=== PATIENT | female | born 1960 | race Caucasian/White ===

== ENCOUNTER 2017-06-01 09:30 | Emergency (ER) | payer BC ==
[~2017-06-01] VITALS: Ht 167.6 cm; Wt 72.6 kg
[~2017-06-01 09:30] MED LIST: LEVO150T PO; OXCA150T5 PO
[2017-06-01 09:40] VITALS: BP_SYST 115
[2017-06-01] MEDS ORDERED: methylPREDNISolone SOD SUCC/PF 62.5 MG/ML VIAL IM ONE (10:15)
[2017-06-01 10:43] VITALS: BP_SYST 141
== END 2017-06-01 10:43 | disposition home or self-care (01) ==
LOC: SED 09:30
DX: T78.1XXA Other adverse food reactions, not elsewhere classified, initial encounter (principal); R21 Rash and other nonspecific skin eruption; I10 Essential (primary) hypertension; Z96.643 Presence of artificial hip joint, bilateral; X58.XXXA Exposure to other specified factors, initial encounter
CPT/HCPCS: 96372; 99283; J2930